=== PATIENT | male | born 1965 | race African-American/Black ===

== ENCOUNTER 2019-12-10 03:12 | Emergency (ER) | payer MEDICAID ==
[~2019-12-10] VITALS: Ht 165.1 cm; Wt 59.0 kg
[2019-12-10 03:20] VITALS: BP 99/65
== END 2019-12-10 05:25 ==
LOC: ER 03:15
DX: S50.311A Abrasion of right elbow, initial encounter (principal); W18.39XA Other fall on same level, initial encounter; Y93.89 Activity, other specified; Y92.89 Other specified places as the place of occurrence of the external cause; Y99.8 Other external cause status